=== PATIENT | male | born 1995 | race Caucasian/White ===

== ENCOUNTER 2016-10-29 13:56 | Emergency (ER) | payer BC ==
[2016-10-29] MEDS ORDERED: KETOROLAC 60 MG/2 ML VIAL IM STA (14:18)
[2016-10-29] MEDS ORDERED: ORPHENADRINE 30 MG/ML 2 ML VIAL IM STA (14:19)
--- NOTE | 2016-10-29 14:26 | ED ---
General Adult HPI - General Chief complaint: Back Pain/Injury Stated complaint: Fall With Back Injury Time Seen by Provider: 10/29/16 14:11 Source: patient, RN notes reviewed Mode of arrival: ambulatory Limitations: no limitations - History of Present Illness Initial comments: This is a 21-year-old male who presents with lower back pain after falling on the stairs today. Patient states he was carrying a TV down the stairs when he slipped and landed on his lower back. Patient states he has chronic back issues and found out 2 weeks ago that he has bulging disks. Patient has had some mild radicular pain 2 weeks ago but patient has not noticed any radicular pain today. Patient denies any numbness/tingling or weakness and patient is able to ambulate without difficulty. Patient states the pain is relieved by laying down flat and worsened by standing or sitting. Patient denies any change in bowel or bladder function or loss of sensation to the saddle area. Patient denies any neck pain. Patient did not lose consciousness or hit his head. Patient denies any recent fever, chills, shortness breath, chest pain, abdominal pain, nausea/vomiting/diarrhea, hematuria, headache, or visual changes, or any other complaints. - Related Data Previous Rx's Medication Instructions Recorded Cyclobenzaprine [Flexeril] 5 mg PO HS 3 Days 10/29/16 Allergies Allergy/AdvReac Type Severity Reaction Status Date / Time No Known Allergies Allergy Verified 10/29/16 14:06 Review of Systems ROS Statement: Those systems with pertinent positive or pertinent negative responses have been documented in the HPI. ROS Other: All systems not noted in ROS Statement are negative. Past Medical History Additional Past Medical History / Comment(s): chronic back pain History of Any Multi-Drug Resistant Organisms: None Reported Past Surgical History: No Surgical Hx Reported Past Psychological History: No Psychological Hx Reported Smoking Status: Current every day smoker Past Alcohol Use History: None Reported Past Drug Use History: None Reported General Exam - General Exam Comments Initial Comments: General: The patient is awake and alert, in no distress, and does not appear acutely ill. Neck: The neck is supple, there is no tenderness or JVD. No cervical midline tenderness. Cardiovascular: There is a regular rate and rhythm. No murmur, rub or gallop is appreciated. Respiratory: Lungs are clear to auscultation, respirations are non-labored, breath sounds are equal. No wheezes, stridor, rales, or rhonchi. Musculoskeletal: There is tenderness to palpation over the thoracic and lumbar spinous processes and to the right side paraspinal muscles of the lumbar spine. There is a small abrasion to the left side of the lower back. Otherwise no ecchymosis or swelling. Patient has a small abrasion to the lateral aspect of the right ankle but there is no tenderness to the medial or lateral malleoli and there is no tenderness with range of motion of the right ankle. There is no swelling or ecchymosis. Full range of motion, strength 5/5 and Sensation intact. Posterior tibial pulses 2+ bilaterally. Negative straight leg raise test bilaterally. Neurological: A&O x 3. CN II-XII intact, There are no obvious motor or sensory deficits. Coordination appears grossly intact. Speech is normal. Skin: Abrasion to the left side lower back into the lateral aspect of the right ankle. Skin is warm and dry and no rashes or lesions are noted. Psychiatric: Normal mood and affect. Limitations: no limitations Course Vital Signs 10/29/16 14:06 Temperature 97.9 F Pulse Rate 78 Respiratory 18 Rate Blood Pressure 136/60 O2 Sat by Pulse 97 Oximetry Medical Decision Making - Medical Decision Making This is a 21-year-old male who presents with lower back pain. On physical exam patient is neurologically intact. There is tenderness to palpation over the thoracic and lumbar spinous processes and to the right side paraspinal muscles of the lumbar spine. There is a small abrasion to the left side of the lower back. Otherwise no ecchymosis or swelling. Patient has a small abrasion to the lateral aspect of the right ankle but there is no tenderness to the medial or lateral malleoli and there is no tenderness with range of motion of the right ankle. There is no swelling or ecchymosis. Full range of motion, strength 5/5 and Sensation intact. Posterior tibial pulses 2+ bilaterally. Patient received a dose of Toradol and Norflex in the EC today. X-rays of the thoracic and lumbar spines are done and reviewed showing: X-ray thoracic spine: #1 No acute osseous lesion. #2 mild scoliosis. X-ray lumbar spine: Normal lumbar spine. Report is read by Dr. Maldonado. I discussed results with patient. Discussed [id number] Aleve/ibuprofen and Tylenol combined with heating pads. I discussed that the patient will receive a prescription for Flexeril to take at night. I discussed sedation effects. I discussed return parameters. Discussed that patient should follow up with PCP in one to 2 days or return to the [facility] for any worsening symptoms or for any further concerns. Patient was receptive to this plan and patient will be discharged home. Disposition Clinical Impression: Mechanical back pain Disposition: HOME SELF-CARE Condition: Good Instructions: Acute Low Back Pain (ED) Additional Instructions: Please continue ibuprofen or naproxen [id number] as needed for pain. Please use Flexeril as prescribed and be aware that this medication can make you drowsy. Please do not drink alcohol or drive on this medication. May use heating pads to the area. Please follow-up with her primary care physician in one to 2 days or return to the [facility] for any worsening symptoms or for any further concerns. Prescriptions: Cyclobenzaprine [Flexeril] 5 mg PO HS 3 Days Referrals: None,Stated [Primary Care Provider] - 1-2 days Annabelle Camacho MD [REFERRING] - 1-2 days Yasmany Zhao III, MD [STAFF PHYSICIAN] - 1-2 days Harry Paez MD [STAFF PHYSICIAN] - 1-2 days Time of Disposition: 14:59
--- NOTE | 2016-10-29 14:50 | XR ---
EXAMINATION TYPE: XR lumbar spine 2 or 3V DATE OF EXAM ORDERED: 10/29/2016 2:44 PM HISTORY: Low back pain following trauma. COMPARISON: None. FINDINGS: Vertebral body height and alignment are maintained. No fractures are seen. There is no spo ndylolysis or spondylolisthesis. The pedicles are intact. IMPRESSION: NORMAL LUMBAR SPINE.
--- NOTE | 2016-10-29 14:51 | XR ---
EXAMINATION TYPE: XR thoracic spine complete DATE OF EXAM ORDERED: 10/29/2016 2:44 PM HISTORY: Pain following trauma. COMPARISON: None. FINDINGS: Vertebral body height and alignment are maintained. No fractures are seen. The pedicles ar e intact. There is a mild dextroscoliosis which may be in part positional. IMPRESSION: 1. NO ACUTE OSSEOUS LESION. 2. MILD SCOLIOSIS.
[2016-10-29 15:17] VITALS: BP 134/78; PULSE 72; RESP 17; TEMP 97.3
== END 2016-10-29 15:16 | disposition home or self-care (01) ==
LOC: EC 13:56
DX: S30.810A Abrasion of lower back and pelvis, initial encounter (principal); S90.511A Abrasion, right ankle, initial encounter; F17.200 Nicotine dependence, unspecified, uncomplicated; W01.0XXA Fall on same level from slipping, tripping and stumbling without subsequent striking against object, initial encounter; Y93.89 Activity, other specified
CPT/HCPCS: 99283; 96372 ×2; 72072; 72100; J2360; J1885